=== PATIENT | male | born 1940 | race Caucasian/White ===

== ENCOUNTER 2022-08-26 08:18 | Emergency (ER) | payer MEDICARE ==
[2022-08-26] VITALS (8 sets, daily range): BP systolic 158–173; BP diastolic 74–139
[2022-08-26] MEDS ORDERED: NORVASC5 M1 PO (08:34)
[2022-08-26] MEDS ORDERED: IRON28 M1 PO (08:35)
[2022-08-26] MEDS ORDERED: HYOSCYAMINE0.125 MG PO (08:35)
[2022-08-26] MEDS ORDERED: OMEPRAZOLE20 MG PO (08:36)
[2022-08-26] MEDS ORDERED: LIPITOR10 M1 PO (08:38)
[2022-08-26] MEDS ORDERED: LOSARTAN POTASS50 MG PO (08:39)
[2022-08-26] MEDS ORDERED: MELOXICAM7.5 MG PO (08:40)
[2022-08-26] MEDS ORDERED: MENS MULTI PO (08:40)
[2022-08-26] MEDS ORDERED: HYDROCHLOROT25 MG PO (08:40)
[2022-08-26] MEDS ORDERED: OXYBUTYNIN CHLO15 MG PO (08:41)
[2022-08-26] MEDS ORDERED: EYE HEALTH1 CAP PO (08:41)
[2022-08-26 09:19] LABS: BASO% 0.4 % (0-3); EOS% 0.8 % (0-8); HEMATOCRIT 43.2 % (39.0-50.0); HEMOGLOBIN 14.9 g/dl (14.0-18.0); IMMATURE GRANULOCYTES 0.1 % (0.0-5.0); LYMPH% 14.9 % (15-41); MEAN CELL VOLUME 86.4 fL CALC (80.0-100.0); MEAN CORPUSCULAR HGB 29.8 pG CALC (26.0-32.0); MEAN CORPUSCULAR HGB CONC 34.5 g/dL CAL (32.0-36.0); NEUT# 5.71 thou/uL (1.82-7.42); NEUT% 76.8 % (42-76); RED CELL DISTRI WIDTH 13.2 % (11.5-15.5)
[2022-08-26 09:39] LABS: ALBUMIN 4.9 g/dL (3.2-5.0); ALKALINE PHOSPHATASE 126 u/l (38-126); ANION GAP 14 (6-22 (CALC)); BUN 15 mg/dL (8-23); BUN/CREATININE RATIO 20 (12-20 (CALC)); CARBON DIOXIDE 29 mmol/l (22-30); CHLORIDE 100 mmol/l (95-108); CREATININE 0.8 mg/dL (0.7-1.3); GFR FOR AFR.AMER. > 60 ML/MIN (>=60 (CALC)); GFR OTHER RACES > 60 ML/MIN (>=60 (CALC)); POTASSIUM 3.8 mmol/l (3.5-5.1); SGOT/AST 26 u/l (19-48); SODIUM 139 mmol/l (137-146)
[2022-08-26 09:40] LABS: BILIRUBIN, TOTAL 1.4 mg/dL (0.0-1.4)
[2022-08-26] MEDS ORDERED: ZOFRAN4 MG/TAB PO (10:22)
[2022-08-26] MEDS ORDERED: DOXY-CAPS100 MG PO (10:22)
[2022-08-26] MEDS ORDERED: MECLIZINE 2525 MG PO (10:22)
== END 2022-08-26 10:45 | disposition home or self-care (01) ==
LOC: ED 08:18
PROVIDERS: Family Medicine
DX: R42 Dizziness and giddiness (principal); J32.9 Chronic sinusitis, unspecified; I10 Essential (primary) hypertension; E78.00 Pure hypercholesterolemia, unspecified; K21.9 Gastro-esophageal reflux disease without esophagitis